=== PATIENT | female | born 1965 | race Caucasian/White ===

== ENCOUNTER → 2021-11-08 | Outpatient (CLI) | payer OTHER | LOC: KOH-I 15:19 | DX: R05.9 Cough, unspecified (principal) | CPT/HCPCS: 71046 ==

== ENCOUNTER → 2021-12-14 | Outpatient (CLI) | payer OTHER | LOC: KOH-I 12:38 | DX: M54.2 Cervicalgia (principal); M54.50 Low back pain, unspecified; M54.6 Pain in thoracic spine; M25.511 Pain in right shoulder; M25.512 Pain in left shoulder; M25.521 Pain in right elbow; M79.642 Pain in left hand; M79.641 Pain in right hand; M25.552 Pain in left hip; M25.551 Pain in right hip; R06.02 Shortness of breath; Z87.01 Personal history of pneumonia (recurrent); R93.6 Abnormal findings on diagnostic imaging of limbs | CPT/HCPCS: 71046; 72040; 72070; 72100; 73030; 73060; 73080; 73120; 73522 ==

== ENCOUNTER → 2022-02-04 | Outpatient (CLI) | payer OTHER | LOC: US 14:00 → EXRD 02-17 08:00 | DX: R60.0 Localized edema (principal) | CPT/HCPCS: 93926; 93971 ==